=== PATIENT | male | born 1990 | race Caucasian/White ===

== ENCOUNTER 2016-11-19 18:54 | Emergency (ER) | payer OTHER ==
--- NOTE | 2016-11-19 19:28 | ED ---
General Adult HPI - General Chief complaint: Seizure Stated complaint: seizure Time Seen by Provider: 11/19/16 18:56 Source: EMS, RN notes reviewed Mode of arrival: EMS Limitations: no limitations - History of Present Illness Initial comments: 26-year-old male presents to the emergency Department chief complaint of seizure. Patient has a history of seizure disorder. Patient stopped taking his medications about 2 months ago because he had not had a seizure. Patient now had a seizure earlier today and another one today. Patient was seen at [facility] It Does Appear That He Received Medications for Home As Well As IV Medication. At This Time He Has No Complaints of Pain. He Does Answer All Questions Appropriately He Is Alert. Patient denies any recent fever, chills, shortness of breath, chest pain, back pain, abdominal pain, nausea vomiting, numbness or tingling, dysuria or hematuria, constipation or diarrhea, headaches or visual changes, or any other current symptoms. - Related Data Home Medications Medication Instructions Recorded Confirmed No Known Home Medications [No 11/19/16 11/19/16 Known Home Medications] Allergies Allergy/AdvReac Type Severity Reaction Status Date / Time ibuprofen [From Motrin] Allergy Swelling Verified 11/19/16 19:14 Review of Systems ROS Statement: Those systems with pertinent positive or pertinent negative responses have been documented in the HPI. ROS Other: All systems not noted in ROS Statement are negative. Past Medical History Past Medical History: Seizure Disorder History of Any Multi-Drug Resistant Organisms: None Reported Past Surgical History: No Surgical Hx Reported Past Psychological History: No Psychological Hx Reported Smoking Status: Never smoker Past Alcohol Use History: Occasional Past Drug Use History: Marijuana General Exam Limitations: no limitations General appearance: alert, in no apparent distress ENT exam: Present: normal exam, mucous membranes moist Neck exam: Present: normal inspection. Absent: tenderness, meningismus, lymphadenopathy Respiratory exam: Present: normal lung sounds bilaterally. Absent: respiratory distress, wheezes, rales, rhonchi, stridor Cardiovascular Exam: Present: regular rate, normal rhythm, normal heart sounds. Absent: systolic murmur, diastolic murmur, rubs, gallop, clicks Extremities exam: Present: normal inspection, full ROM, normal capillary refill. Absent: tenderness, pedal edema, joint swelling, calf tenderness Back exam: Present: normal inspection Neurological exam: Present: alert, oriented X3, CN II-XII intact Psychiatric exam: Present: normal affect, normal mood Skin exam: Present: warm, dry, intact, normal color. Absent: rash Course Vital Signs 11/19/16 18:58 Temperature 99.1 F Pulse Rate 90 Respiratory 18 Rate Blood Pressure 129/71 O2 Sat by Pulse 100 Oximetry - Reevaluation(s) Reevaluation #1: 11/19/16 19:41 Patient was informed of no driving. We did discuss the importance of taking his seizure medication. Family and patient are in agreement with plan. Medical Decision Making - Medical Decision Making 26-year-old male presents to the emergency department with chief complaint of seizure. Patient with family here and he was given a bolus of Dilantin given a prescription for Dilantin which he did not ago and fell. This time we discussed the importance of seizure medication. We discussed capsule he no driving we do give him follow-up to neurology. We did discuss all the patient' s and family's questions. They stated they understood. All her questions have been answered. They will be discharged. Disposition Clinical Impression: Generalized seizure Disposition: HOME SELF-CARE Condition: Stable Instructions: Recurrent Seizures in Adults (ED) Additional Instructions: Please use medication as discussed. Please follow up with family doctor if symptoms have not improved over the next two days. Please return to the emergency room if your symptoms increase or worsen or for any other concerns. Referrals: Ginny Fish MD [Primary Care Provider] - 1-2 days Judith Wiseman MD [STAFF PHYSICIAN] - 1-2 days Time of Disposition: 19:41
[2016-11-19 20:01] VITALS: BP 118/70; PULSE 67; RESP 16; TEMP 97.8
== END 2016-11-19 20:00 | disposition home or self-care (01) ==
LOC: EC 18:54
DX: G40.409 Other generalized epilepsy and epileptic syndromes, not intractable, without status epilepticus (principal); T50.906A Underdosing of unspecified drugs, medicaments and biological substances, initial encounter; Z91.128 Patient's intentional underdosing of medication regimen for other reason; Z88.8 Allergy status to other drugs, medicaments and biological substances
CPT/HCPCS: 99285

== ENCOUNTER 2017-05-03 13:05 | Emergency (ER) | payer OTHER ==
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
--- NOTE | 2017-05-03 14:32 | XR ---
EXAMINATION TYPE: XR hand complete RT DATE OF EXAM: 05/03/2017 CLINICAL HISTORY: Right hand pain TECHNIQUE: Frontal, lateral and oblique images of the right hand are obtained. COMPARISON: None. FINDINGS: There is no acute fracture/dislocation evident in the right hand. The joint spaces in the right hand appear within normal limits. The overlying soft tissue appears unremarkable. IMPRESSION: There is no acute fracture or dislocation in the right hand.
[2017-05-03 14:36] VITALS: BP 144/63; PULSE 71; RESP 18; TEMP 98.1
== END 2017-05-03 14:35 | disposition home or self-care (01) ==
LOC: EC 13:05
DX: S60.221A Contusion of right hand, initial encounter (principal); Z79.899 Other long term (current) drug therapy; Z88.6 Allergy status to analgesic agent; Z91.010 Allergy to peanuts; W20.8XXA Other cause of strike by thrown, projected or falling object, initial encounter; Y93.89 Activity, other specified; Y92.89 Other specified places as the place of occurrence of the external cause
CPT/HCPCS: 99283

== ENCOUNTER 2018-11-26 23:26 | Emergency (ER) | payer OTHER ==
[2018-11-26 23:30] VITALS: RESP 18
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
[2018-11-27] MEDS: SODIUM CHLORIDE 0.9% 500 ML 500 ML IV STA (00:09)
[2018-11-27 00:25] LABS: Basophils # (A) 0.2 k/uL (0-0.2); Basophils % (A) 2 %; Eosinophils # (A) 0.1 k/uL (0-0.7); Eosinophils % (A) 2 %; HCT 47.9 % (39.0-53.0); HGB 16.1 gm/dL (13.0-17.5); Lymphocytes # (A) 1.7 k/uL (1.0-4.8); Lymphocytes % (A) 21 %; MCH 30.4 pg (25.0-35.0); MCHC 33.6 g/dL (31.0-37.0); MCV 90.4 fL (80.0-100.0); Mean Platelet Volume 7.2; Monocytes # (A) 0.5 k/uL (0-1.0); Monocytes % (A) 6 %; Neutrophils # (A) 5.6 k/uL (1.3-7.7); Neutrophils % (A) 69 %; Platelet Count 364 k/uL (150-450); RDW 12.2 % (11.5-15.5); WBC 8.2 k/uL (3.8-10.6)
[2018-11-27 00:33] LABS: ALT 21 U/L (21-72); AST 33 U/L (17-59); African American GFR (CKD) >90 (>60 ml/min/1.73 sqM); Albumin 5.5 g/dL (3.5-5.0); Alcohol <10 mg/dL; Alkaline Phosphatase 67 U/L (38-126); Anion Gap 15 mmol/L; Blood Urea Nitrogen 19 mg/dL (9-20); Calcium 10.7 mg/dL (8.4-10.2); Carbon Dioxide 25 mmol/L (22-30); Chloride 100 mmol/L (98-107); Glucose 109 mg/dL (74-99); Phenytoin (Dilantin) 6.7 ug/mL; Sodium 140 mmol/L (137-145); Total Bilirubin 0.8 mg/dL (0.2-1.3); Total Protein 8.9 g/dL (6.3-8.2)
[2018-11-27 00:34] VITALS: TEMP 97.6
[2018-11-27 01:23] VITALS: BP 134/83; PULSE 83
[2018-11-27] MEDS: PHENYTOIN SODIUM EXTENDED 100 MG CAP PO ONE (01:23)
[2018-11-27 01:25] LABS: Amphetamine Screen,Urine Detected (NotDetected); Barbiturate Screen,Urine Detected (NotDetected); Benzodiazepines Screen,Urine Not Detected (NotDetected); Cocaine Screen,Urine Not Detected (NotDetected); Methadone Screen, Urine Not Detected (NotDetected); Opiate Screen,Urine Not Detected (NotDetected); Oxycodone Screen, Urine Not Detected (NotDetected); Phencyclidine Screen,Urine Not Detected (NotDetected); Tricyclic Antidepressant,Urine Not Detected (NotDetected); Urn Cannabinoid Scrn Detected (NotDetected)
== END 2018-11-27 01:23 | disposition home or self-care (01) ==
LOC: EC 23:26
DX: G40.909 Epilepsy, unspecified, not intractable, without status epilepticus (principal); Z79.899 Other long term (current) drug therapy; Z88.6 Allergy status to analgesic agent; Z91.010 Allergy to peanuts; Z87.828 Personal history of other (healed) physical injury and trauma
CPT/HCPCS: 36415; 80053; 80185; 80306; 80320; 85025; 93005; 99284

== ENCOUNTER 2021-05-29 14:19 | Emergency (ER) | payer BC, OTHER ==
[2021-05-29 15:58] VITALS: TEMP 97.2
[2021-05-29] MEDS ORDERED: SODIUM CHLORIDE 0.9% 1,000 ML IV STA (18:38)
[2021-05-29] MEDS ORDERED: MORPHINE SULFATE 4 MG/ML SYRINGE IV STA (18:38)
[2021-05-29] MEDS ORDERED: ONDANSETRON 4 MG/2 ML VIAL IVP STA (18:38)
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
--- NOTE | 2021-05-29 19:26 | XR ---
EXAMINATION TYPE: XR chest 2V DATE OF EXAM: 05/29/2021 COMPARISON: 11/25/2016 HISTORY: Pain TECHNIQUE: 3 AP views of the chest/abdomen are obtained. FINDINGS: There is no focal air space opacity, pleural effusion, or pneumothorax seen. The cardiac silhouette size is within normal limits. The osseous structures are intact. Visualized abdomen demonstrates a nonobstructive bowel gas pattern. No pathologic calcifications. Pel aiden phleboliths seen. IMPRESSION: No acute process.
[2021-05-29 20:05] LABS: Basophils % (A) 0 %; Eosinophils % (A) 0 %; HCT 44.4 % (39.0-53.0); HGB 14.9 gm/dL (13.0-17.5); Lymphocytes # (A) 0.6 k/uL (1.0-4.8); Lymphocytes % (A) 6 %; MCH 32.1 pg (25.0-35.0); MCHC 33.7 g/dL (31.0-37.0); MCV 95.4 fL (80.0-100.0); Mean Platelet Volume 7.7; Monocytes # (A) 0.2 k/uL (0-1.0); Monocytes % (A) 2 %; Neutrophils # (A) 9.2 k/uL (1.3-7.7); Neutrophils % (A) 91 %; Platelet Count 332 k/uL (150-450); RBC 4.65 m/uL (4.30-5.90); RDW 12.3 % (11.5-15.5); WBC 10.1 k/uL (3.8-10.6)
[2021-05-29 20:31] LABS: ALT 29 U/L (4-49); AST 32 U/L (17-59); African American GFR (CKD) >90 (>60 ml/min/1.73 sqM); Albumin 5.3 g/dL (3.5-5.0); Alkaline Phosphatase 68 U/L (38-126); Blood Urea Nitrogen 16 mg/dL (9-20); Calcium 10.2 mg/dL (8.4-10.2); Chloride 104 mmol/L (98-107); Glucose 126 mg/dL (74-99); Lipase 33 U/L (23-300); Non-African American GFR(CKD) >90 (>60 ml/min/1.73 sqM); Potassium 3.9 mmol/L (3.5-5.1); Sodium 138 mmol/L (137-145); Total Bilirubin 0.9 mg/dL (0.2-1.3)
[2021-05-29 20:33] LABS: Amylase 67 U/L (30-110); Anion Gap 11 mmol/L; Carbon Dioxide 23 mmol/L (22-30); Total Protein 8.6 g/dL (6.3-8.2)
[2021-05-29] MEDS ORDERED: HALOPERIDOL LACTATE 5 MG/ML 1 ML VIAL IVP STA (21:02)
[2021-05-29 22:27] LABS: Appearance,Urine Clear (Clear); Bilirubin,Urine Negative (Negative); Blood,Urine Negative (Negative); Color,Urine Yellow; Glucose,Urine (UA) Negative (Negative); Ketones,Urine 3+ (Negative); Leukocyte Esterase,Urine Negative (Negative); Nitrite,Urine Negative (Negative); Protein,Urine Trace (Negative); Specific Gravity,Urine 1.027 (1.001-1.035); Urobilinogen,Urine <2.0 mg/dL (<2.0)
[2021-05-29 23:07] VITALS: BP 105/54; PULSE 63; RESP 18
== END 2021-05-29 23:02 | disposition home or self-care (01) ==
LOC: EC 14:19
DX: K29.70 Gastritis, unspecified, without bleeding (principal); G40.909 Epilepsy, unspecified, not intractable, without status epilepticus; F17.200 Nicotine dependence, unspecified, uncomplicated; F12.90 Cannabis use, unspecified, uncomplicated
CPT/HCPCS: 36415; 93005; 80053; 82150; 83605; 83690; 84484; 85025; 81003; 71046; 99284; 96374; 96375 ×2; J2270; J1630; J2405